=== PATIENT | female | born 1970 | race Asian ===

== ENCOUNTER → 2021-05-09 | Outpatient (CLI) | payer OTHER ==
[~2021-05-09] MED LIST: CALC-1015; VALS1TAB2 PO; VIT500TA PO
[2021-05-10 04:06] LABS: RUBELLA AB IGG-REFLAB 4.79 index (Immune >0.99)
== END | disposition home or self-care (01) ==
LOC: LABPV 10:08
PROVIDERS: ATTEND Internal Medicine
DX: Z02.1 Encounter for pre-employment examination (principal)
CPT/HCPCS: 86706; 86735; 86762; 86765; 86787; 36415-L1; 36415-TC

== ENCOUNTER → 2023-11-17 | Emergency (ER) | payer OTHER ==
[~2023-11-17] VITALS: Ht 152.4 cm; Wt 79.5 kg
[~2023-11-17] MED LIST changes: +ATEN-187 PO; +HYDR25TA2 PO; +IBUP-1492 PO; +LIDO700A15 TP; +METF-1211 PO; +METF-446 PO; +ROSU10TA72 PO; +VALS80TA2 PO
[2023-11-17 11:06] VITALS: BP 131/70; PULSE 70; RESP 18; TEMP 98.6
[2023-11-17] MEDS: LIDOCAINE 5% TRANSDERMAL PATCH TD ONE (13:06)
[2023-11-17] MEDS: IBUPROFEN 600 MG TABLET PO ONE (13:06)
== END | disposition still patient (30) ==
LOC: EMS 11:01
DX: S20.221A Contusion of right back wall of thorax, initial encounter (principal); I10 Essential (primary) hypertension; Z90.710 Acquired absence of both cervix and uterus; Y08.89XA Assault by other specified means, initial encounter; Y93.89 Activity, other specified; Y92.89 Other specified places as the place of occurrence of the external cause; Y99.8 Other external cause status
CPT/HCPCS: 82962; 99283

== ENCOUNTER 2024-07-07 15:30 | Emergency (ER) | payer OTHER ==
[~2024-07-07] VITALS: Ht 152.4 cm; Wt 76.4 kg
[~2024-07-07 15:30] MED LIST changes: -CALC-1015; -METF-1211 PO; -VALS1TAB2 PO; -VIT500TA PO
[2024-07-07 15:34] VITALS: TEMP 98.6
[2024-07-07 17:00] VITALS: BP 145/66; PULSE 74; RESP 17; O2SAT 98
[2024-07-07] MEDS ORDERED: POLY10DR5 OS (17:22)
== END 2024-07-07 19:03 | disposition home or self-care (01) ==
LOC: EMS 15:30
DX: S00.83XA Contusion of other part of head, initial encounter (principal); I10 Essential (primary) hypertension; Z90.710 Acquired absence of both cervix and uterus; W22.03XA Walked into furniture, initial encounter; Y93.89 Activity, other specified; Y92.89 Other specified places as the place of occurrence of the external cause; Y99.8 Other external cause status
CPT/HCPCS: 99283; Z7502

== ENCOUNTER 2025-07-21 18:52 | Emergency (ER) | payer OTHER ==
[~2025-07-21] VITALS: Ht 152.4 cm; Wt 76.4 kg
[~2025-07-21 18:52] MED LIST changes: +LIDO-57 TP; -LIDO700A15 TP; +POLY10DR5 OS; -ROSU10TA72 PO; +ROSU10TA98 PO
[2025-07-21 19:04] VITALS: TEMP 98.6
[2025-07-21] MEDS: ONDANSETRON 4 MG TABLET PO ONE (19:52)
[2025-07-21] MEDS: IBUPROFEN 600 MG TABLET PO ONE (19:53)
[2025-07-21] MEDS: ACETAMINOPHEN 325 MG TABLET PO ONE (19:53)
[2025-07-21 23:22] VITALS: BP 126/68; PULSE 70; RESP 18; O2SAT 98
== END 2025-07-21 23:40 | disposition home or self-care (01) ==
LOC: EMS 18:58
DX: M54.2 Cervicalgia (principal); R51.9 Headache, unspecified; R11.0 Nausea; I10 Essential (primary) hypertension; Z02.6 Encounter for examination for insurance purposes; Z79.84 Long term (current) use of oral hypoglycemic drugs; Z79.899 Other long term (current) drug therapy; Z90.710 Acquired absence of both cervix and uterus; W50.1XXA Accidental kick by another person, initial encounter; Y93.89 Activity, other specified; Y92.89 Other specified places as the place of occurrence of the external cause; Y99.0 Civilian activity done for income or pay
CPT/HCPCS: 99284; 70450; 72125; Q0162